=== PATIENT | female | born 1980 | race Caucasian/White ===

== ENCOUNTER → 2017-01-14 | Outpatient (CLI) | payer BC ==
[~2017-01-14] MED LIST: ACET-1256 PO; MTR600X PO; ONDA4TAB4 PO; OXYC-57 PO; PRENTAB26 PO
[2017-01-14 17:14] LABS: HEMATOCRIT 35.4 % (37-47)
[2017-01-14 18:27] LABS: URINE APPEARANCE CLEAR (CLEAR); URINE COLOR DK YELLOW; URINE EPITHELIAL CELL AUTO >30 /lpf (0-5); URINE NITRITE NEG (NEG); URINE PH 6.5 (4.5-7.5); URINE SPECIFIC GRAVITY 1.029 (1.000-1.030); UROBILINOGEN NEG (NEG)
[2017-01-14 18:31] LABS: MANUAL MICROSCOPIC REQUIRED? NO; REVIEW REQ? YES; URINE BILIRUBIN NEG (NEG)
== END | disposition home or self-care (01) ==
LOC: C.LAB1850 15:18
PROVIDERS: ATTEND Obstetrics & Gynecology
DX: O09.513 Supervision of elderly primigravida, third trimester (principal)

== ENCOUNTER → 2017-03-02 | Outpatient (CLI) | payer BC ==
[2017-03-02 09:54] LABS: PATIENT HEIGHT 175.3 cm
[2017-03-02 22:39] LABS: URINE TOTAL PROTEIN 15.7 mg/dl (0-11.9)
[2017-03-02 22:43] LABS: CREATININE 0.65 mg/dl (0.6-1.2); URINE TOTAL PROTEIN CALC 423.9 mg/24 hr (0-149.1)
== END ==
LOC: C.LAB1850 09:44
PROVIDERS: ATTEND Obstetrics & Gynecology
DX: O10.912 Unspecified pre-existing hypertension complicating pregnancy, second trimester (principal)

== ENCOUNTER → 2017-03-05 | Outpatient (CLI) | payer BC ==
[2017-03-05 15:00] LABS: MEAN CELL VOLUME 94.1 fL (80-100); MEAN CORPUSCULAR HEMOGLOBIN 30.8 pg (25-34); PLATELET COUNT 319 K/uL (130-400); RED BLOOD COUNT 3.93 M/uL (4.2-5.4); WHITE BLOOD COUNT 13.69 K/uL (4.8-10.8)
[2017-03-05 15:24] LABS: BASO % 0.1 %; BASO ABS # 0.02 K/uL (0-0.2); COMPLETE YES; EOS % 1.2 %; IG% 0.4 %; LYMPH % 19.6 %; LYMPH ABS # 2.68 K/uL (1.2-3.4); MEAN CORPUSCULAR HGB CONC 32.7 g/dl (32-36); MONO % 5.8 %; NEUT % 72.9 %
[2017-03-05 15:25] LABS: ALT/SGPT 33 U/L (12-78); AST/SGOT 17 U/L (15-37); CREATININE 0.63 mg/dl (0.60-1.20); URIC ACID 3.9 mg/dl (2.6-7.2)
== END | disposition home or self-care (01) ==
LOC: C.LAB1850 14:28
PROVIDERS: ATTEND Obstetrics & Gynecology
DX: O11.9 Pre-existing hypertension with pre-eclampsia, unspecified trimester (principal)

== ENCOUNTER → 2017-03-12 | Outpatient (CLI) | payer BC ==
[2017-03-12 15:26] LABS: BASO % 0.1 %; BASO ABS # 0.01 K/uL (0-0.2); EOS % 1.3 %; HEMATOCRIT 37.3 % (37-47); IG% 0.7 %; MEAN CELL VOLUME 94.4 fL (80-100); MEAN CORPUSCULAR HEMOGLOBIN 31.1 pg (25-34); MEAN PLATELET VOLUME 10.2 fL (7.4-10.4); MONO % 5.9 %; PLATELET COUNT 313 K/uL (130-400); RED BLOOD COUNT 3.95 M/uL (4.2-5.4)
[2017-03-12 15:29] LABS: COMPLETE YES
[2017-03-12 15:55] LABS: ALT/SGPT 27 U/L (12-78); AST/SGOT 14 U/L (15-37); CREATININE 0.65 mg/dl (0.60-1.20); URIC ACID 3.9 mg/dl (2.6-7.2)
== END | disposition home or self-care (01) ==
LOC: C.LAB1850 14:49
PROVIDERS: ATTEND Obstetrics & Gynecology
DX: O11.9 Pre-existing hypertension with pre-eclampsia, unspecified trimester (principal)

== ENCOUNTER → 2017-03-12 | Outpatient (CLI) | payer BC | END | disposition home or self-care (01) | LOC: C.LABSPEC 10:42 | PROVIDERS: ATTEND Obstetrics & Gynecology | DX: O09.513 Supervision of elderly primigravida, third trimester (principal); Z3A.00 Weeks of gestation of pregnancy not specified ==

== ENCOUNTER 2017-03-23 19:09 | Outpatient (CLI) | payer BC ==
[~2017-03-23] VITALS: Ht 175.3 cm; Wt 117.0 kg
[~2017-03-23 19:09] MED LIST changes: -MTR600X PO; -OXYC-57 PO; -PRENTAB26 PO
[2017-03-23 20:33] VITALS: Ht 175.3 cm; Wt 117.0 kg
[2017-03-24] MEDS ORDERED: PRENTAB26 PO (09:03)
== END 2017-03-23 20:55 | disposition home or self-care (01) ==
LOC: C.OPB 19:09 → C.LD 19:09 → C.OPB 20:55
PROVIDERS: ATTEND Obstetrics & Gynecology
DX: O24.414 Gestational diabetes mellitus in pregnancy, insulin controlled (principal); O11.3 Pre-existing hypertension with pre-eclampsia, third trimester; O09.93 Supervision of high risk pregnancy, unspecified, third trimester; Z3A.37 37 weeks gestation of pregnancy

== ENCOUNTER 2017-03-24 07:40 | Inpatient (IN) | payer BC ==
[~2017-03-24] VITALS: Ht 175.3 cm; Wt 115.9 kg
[2017-03-24] MEDS ORDERED: LACTATED RINGER'S 1000ML 1,000 ML IV PRN (08:51)
[2017-03-24] MEDS ORDERED: PRENTAB26 PO (09:03)
[2017-03-24] MEDS ORDERED: DEXTROSE 50% 50 ML SYR IV PRN (09:15)
[2017-03-24 09:35] LABS: HEMATOCRIT 35.9 % (37-47); MEAN CELL VOLUME 95.2 fL (80-100); MEAN CORPUSCULAR HEMOGLOBIN 31.8 pg (25-34); MEAN CORPUSCULAR HGB CONC 33.4 g/dl (32-36); MEAN PLATELET VOLUME 10.4 fL (7.4-10.4); PLATELET COUNT 268 K/uL (130-400); RED BLOOD COUNT 3.77 M/uL (4.2-5.4); WHITE BLOOD COUNT 10.34 K/uL (4.8-10.8)
[2017-03-24] MEDS ORDERED: LACTATED RINGER'S 1000ML 500 ML IV PRN ×2 (10:06→19:45)
[2017-03-24] MEDS ORDERED: OXYTOCIN 30 UNITS/500ML NSS IV PRN (10:15)
[2017-03-24 10:21] LABS: ALT/SGPT 27 U/L (12-78); AST/SGOT 16 U/L (15-37); BLOOD UREA NITROGEN 10 mg/dl (7-18); BUN/CREATININE RATIO 14.4 (10-20); CALCIUM 8.3 mg/dl (8.5-10.1); CARBON DIOXIDE 22 mmol/L (21-32); CHLORIDE 105 mmol/L (98-107); CREATININE 0.67 mg/dl (0.60-1.20); GLUCOSE 208 mg/dl (70-99); POTASSIUM 3.9 mmol/L (3.5-5.1); SODIUM 135 mmol/L (136-145); URIC ACID 4.6 mg/dl (2.6-7.2)
[2017-03-24 10:24] LABS: ALB/GLOB RATIO 0.6 (0.9-2); ALKALINE PHOSPHATASE 150 U/L (45-117)
[2017-03-24] MEDS: LACTATED RINGER'S 1000ML 1,000 ML IV SCH ×3 (10:25→21:29)
[2017-03-24] MEDS: INSULIN REGULAR 250 UNITS in SODIUM CHLORIDE 0.9% 250ML 250 ML IV SCH ×7 (10:45→18:57)
[2017-03-24] MEDS: SODIUM CHLORIDE 0.9% 1000ML 1,000 ML IV SCH ×2 (10:46→18:53)
[2017-03-24 11:13] VITALS: Ht 175.3 cm; Wt 115.9 kg
[2017-03-24] MEDS ORDERED: LABETALOL HCL IV 5 MG/ML 20ML IV PRN ×2 (12:15→20:30)
[2017-03-24] MEDS: DEXTROSE 5% 1000ML 1,000 ML IV SCH ×3 (12:59→18:53)
[2017-03-24] MEDS ORDERED: EpHEDrine SULFATE INJ 50 MG/ML AMP ONE (18:34)
[2017-03-24] MEDS ORDERED: BUPIVACAINE 0.25% 30 ML VIAL ONE (18:34)
[2017-03-24] MEDS ORDERED: FENTANYL CITRATE INJ 50 MCG/1 ML 2 ML VIAL ONE (18:35)
[2017-03-24] MEDS ORDERED: FENTANYL 2MCG/ML ROPIV 1.25MG/ML 100ML BAG EPI ONE (18:35)
[2017-03-24] MEDS ORDERED: DiphenhydrAMINE HCL 50 MG/ML VIAL IV PRN (19:45)
[2017-03-24] MEDS ORDERED: NALBUPHINE HCL INJ 10 MG/ML AMP IV PRN (19:45)
[2017-03-24] MEDS ORDERED: EpHEDrine SULFATE INJ 50 MG/ML AMP IV PRN (19:45)
[2017-03-24] MEDS ORDERED: NALOXONE HCL INJ 1 MG in SODIUM CHLORIDE 0.9% 1000ML 1,000 ML IV PRN (19:45)
[2017-03-24] MEDS ORDERED: NALOXONE HCL INJ 0.4 MG/1 ML VIAL/CARP IV PRN (19:45)
[2017-03-24] MEDS: FENTANYL 2MCG/ML ROPIV 1.25MG/ML 100ML BAG EPI PRN (21:33)
[2017-03-25] VITALS (15 sets, daily range): BP systolic 122–146; BP diastolic 70–92; PULSE 60–74; TEMP 36.3–36.9; O2SAT 94–99
[2017-03-25] MEDS ORDERED: NURSING VERBAL MED ORDER ONE ×2 (00:30→05:00)
[2017-03-25] MEDS ORDERED: ONDANSETRON INJ 2 MG/ML 2 ML VIAL ONE ×2 (00:44→07:02)
[2017-03-25] MEDS ORDERED: ONDANSETRON INJ 2 MG/ML 2 ML VIAL IV ONE (00:45)
[2017-03-25] MEDS ORDERED: ONDANSETRON INJ 2 MG/ML 2 ML VIAL IV PRN ×2 (00:45→09:00)
[2017-03-25] MEDS: FENTANYL 2MCG/ML ROPIV 1.25MG/ML 100ML BAG EPI PRN ×2 (00:52→07:05)
[2017-03-25] MEDS: DEXTROSE 5% 1000ML 1,000 ML IV SCH (00:56)
[2017-03-25] MEDS: INSULIN REGULAR 250 UNITS in SODIUM CHLORIDE 0.9% 250ML 250 ML IV SCH ×2 (04:20→06:14)
[2017-03-25] MEDS ORDERED: CITRIC ACID/SODIUM CITRATE 15 ML UDC PO ONE (05:45)
[2017-03-25] MEDS ORDERED: CEFAZOLIN IV 3,000 MG in DEXTROSE 5% 50ML 50 ML IV SCH (06:00)
[2017-03-25] MEDS ORDERED: FENTANYL CITRATE INJ 50 MCG/1 ML 2 ML VIAL ONE (07:02)
[2017-03-25] MEDS ORDERED: MoRPHine SULFATE PF 1 MG/ML 10 ML AMP/VIAL ONE (07:02)
[2017-03-25] MEDS ORDERED: PHENYLEPHRINE HCL INJ 10 MG/ML VIAL ONE (07:02)
[2017-03-25] MEDS ORDERED: EpHEDrine SULFATE INJ 50 MG/ML AMP ONE (07:02)
[2017-03-25] MEDS ORDERED: OXYTOCIN INJ 10 UNITS/ML VIAL ONE (07:02)
[2017-03-25] MEDS ORDERED: LIDOCAINE/EPINEPHRINE 2% 1:200,000 20 ML SDV ONE (07:02)
[2017-03-25] MEDS ORDERED: LACTATED RINGER'S 1000ML 1,000 ML IV SCH (08:36)
--- NOTE | 2017-03-25 08:38 | [facility] Post Operative Brief Note ---
Immediate Operative Summary Operative Date March 25, 2017. Pre-Operative Diagnosis Failure to Descend; Chronic Hypertension;Superimposed Preeclampsia;Gestational Diabetic A2;Advanced Maternal Age Post-Operative Diagnosis Same Procedure(s) Performed Primary Caesarean Section; Delivery of a live female child at [address] Cavanaugh Complaint Investigations Officer Surgeon(s) Viviana oRsenbaum, RN;Dr. Duoglas Estimated Blood Loss 600 cc Findings Normal uterus tubes and ovaries. Viable female , Apgars 9/9. Wt 7#3. Specimens cord blood placenta- exam arterial and venous gases Drains vences, clear yellow at conclusion of case Anesthesia epidural redose Complication(s) None Disposition Recovery Room / PACU
[2017-03-25] MEDS ORDERED: BENZOCAINE 20% AER SPR 82.5 GM CAN EXT PRN (08:45)
[2017-03-25] MEDS ORDERED: DIPHTHERIA/TETANUS/PERTUSSIS 0.5 ML SYR/VIAL IM. ONE (08:45)
[2017-03-25] MEDS ORDERED: HYDROCORTISONE ACETATE 25 MG SUPP PR PRN (08:45)
[2017-03-25] MEDS ORDERED: SUPERCREAM 0.870 % 15GM JAR EXT PRN (08:45)
[2017-03-25] MEDS ORDERED: LANOLIN OINT EXT PRN ×2 (08:45)
[2017-03-25] MEDS ORDERED: NALOXONE HCL INJ 0.08 MG in SYRINGE 1.8 ML IV PRN (08:49)
[2017-03-25] MEDS ORDERED: SODIUM CHLORIDE 0.9% 1000ML 1,000 ML IV PRN (08:49)
[2017-03-25] MEDS ORDERED: LACTATED RINGER'S 1000ML 500 ML IV PRN (08:49)
--- NOTE | 2017-03-25 08:52 | Anesthesiology Progress Note ---
Anesthesia Post Op Note Date & Time March 25, 2017 at 08:51 Vital Signs Pain Intensity: 1.0 Notes Mental Status: alert / awake / arousable, participated in evaluation Pt Amnestic to Procedure: No (recall as expected) Nausea / Vomiting: adequately controlled Pain: adequately controlled Airway Patency, RR, SpO2: stable & adequate BP & HR: stable & adequate Hydration State: stable & adequate Neuraxial Anesthesia: sensory block is resolving Anesthetic Complications: no major complications apparent Pt had C/S for arrest of descent. She had a pre-existing epidural catheter which I used for the procedure. Her anesthetic course was unremarkable. Post-op vitals: BP 118/57, HR 82, RR 16, SpO2 95% on RA, T 36.5.
[2017-03-25] MEDS ORDERED: DiphenhydrAMINE HCL 50 MG/ML VIAL IV PRN (09:00)
[2017-03-25] MEDS ORDERED: NALOXONE HCL 0.4 MG/1 ML VIAL/CARP IV PRN (09:00)
[2017-03-25] MEDS ORDERED: PROMETHAZINE HCL INJ 25 MG in SODIUM CHLORIDE 0.9% 50ML 50 ML IV PRN (09:00)
[2017-03-25] MEDS ORDERED: MoRPHine SULFATE 2 MG/ML CARP IV PRN (09:00)
[2017-03-25] MEDS ORDERED: MEPERIDINE HCL 25 MG/ML CARP IV PRN (09:00)
[2017-03-25] MEDS ORDERED: NALBUPHINE HCL INJ 10 MG/ML AMP IV PRN (09:00)
[2017-03-25] MEDS ORDERED: MoRPHine SULFATE PF 1 MG/ML 10 ML AMP/VIAL EPI PRN (09:00)
[2017-03-25] MEDS ORDERED: NO NARCOTICS OR SEDATIVES SCH (09:00)
[2017-03-25] MEDS ORDERED: EpHEDrine SULFATE INJ 50 MG/ML AMP IV PRN (09:00)
[2017-03-25] MEDS: OXYTOCIN INJ 30 UNITS in LACTATED RINGER'S 1000ML 1,000 ML IV SCH ×2 (09:10→17:26)
[2017-03-25] MEDS: KETOROLAC TROMETHAMINE 30 MG/ML VIAL IV. PRN ×2 (09:49→23:34)
--- NOTE | 2017-03-25 10:05 | OPERATIVE REPORT ---
DATE OF OPERATION: 03/25/2017 PREOPERATIVE DIAGNOSES: 1. Term intrauterine at 37-week gestation, induction indicated for chronic hypertension with superimposed preeclampsia. 2. Failure to descend beyond +1 station after 3 hours of pushing. 3. Gestational diabetes type A2, uncontrolled. 4. Advanced maternal age. 5. Smoker. POSTOPERATIVE DIAGNOSES: Same. PROCEDURES PERFORMED: Primary low transverse section with delivery of a live female . SURGEON: Maday Cavanaugh DO ASSISTANTS: Ana Douglas MD and Marcy Rosenbaum RN. ESTIMATED BLOOD LOSS: 600 mL. FINDINGS: Normal uterus, tubes, and ovaries. Viable female , Apgars 9 and 9, weight 7 pounds 3 ounces. SPECIMENS: Cord blood, placenta and cord gases. DRAINS: Seaman, clear yellow at the conclusion of the case. ANESTHESIA: Epidural redosed. COMPLICATIONS: None. DISPOSITION: Stable and good to recovery room and PACU. INDICATIONS FOR PROCEDURE: The patient was undergoing indicated induction of labor for the above noted diagnoses and she progressed to complete with epidural anesthesia. She then began to push and pushed for 3+ hours with no progression and station. heart tracing was category 1 throughout. DESCRIPTION OF PROCEDURE: The patient was seen in her room and risks, benefits, alternatives were reviewed surgery. She elected to proceed with section and informed consent was obtained. All questions were answered to the patient and her mother. She was then taken to the operating room where 3 grams of Ancef was infused. She was prepared and draped in the usual sterile fashion in the supine position with a leftward tilt. A timeout was called and confirmed and agreed by all participants in the room. A scalpel was used to create the Pfannenstiel skin incision. This was carried through to the underlying layer of fascia. The fascia was nicked at midline and bluntly dissected to extend this incision. The superior aspect of the fascial incision was grasped with Meg clamps x2 and elevated off the underlying rectus abdominis muscles. The inferior aspect of the incision was similarly grasped and dissected. The muscles were at midline and the peritoneum was entered bluntly digitally. A bladder flap was created using Metzenbaum scissors and bladder blade was placed. A new scalpel was used to create the low transverse uterine incision. This was extended by cephalad caudad manually. The was then delivered from a cephalic presentation. The head delivered, followed by the posterior, followed by the anterior shoulder, followed by the body. The baby was warmed and suctioned on the field and a spontaneous cry was heard. The cord was doubly clamped and cut and the baby was handed off to the waiting pediatrics team. The cord segment was obtained and cord blood was obtained. The placenta was then manually extracted from the uterus and multiple bits of membranes were gently teased from the uterine lining with both a dry sponge and ring forceps. A final sweep of the uterus revealed no obvious remaining membranes. The hysterotomy incision was then reapproximated using 0 Vicryl in a running locked stitch, a second stitch of the same suture was used to imbricate the incision. The gutters were cleared of all clots and debris. The hysterotomy incision was noted to be hemostatic. The fascia was reapproximated with 0 Vicryl in a running stitch. The subcutaneous area was irrigated and reapproximated with 2-0 plain gut in a running stitch. The skin was reapproximated with 4-0 Vicryl in a running subcuticular stitch. Dermabond was applied and the patient was taken to recovery room in stable and good condition. I attest to the content of the Intraoperative Record and any orders documented therein. Any exceptio ns are noted below.
[2017-03-25] MEDS: SIMETHICONE 80 MG CHEW PO SCH ×3 (12:30→21:00)
[2017-03-25] MEDS: DOCUSATE SODIUM 100 MG CAP PO SCH (21:00)
[2017-03-26] VITALS (9 sets, daily range): BP systolic 116–154; BP diastolic 68–87; PULSE 65–75; TEMP 36.5–37; O2SAT 95–97
[2017-03-26] MEDS: OXYTOCIN INJ 30 UNITS in LACTATED RINGER'S 1000ML 1,000 ML IV SCH (02:16)
[2017-03-26] MEDS ORDERED: DC INTRASPINAL MORPHINE SCH (03:00)
[2017-03-26] MEDS ORDERED: MEPERIDINE HCL 50 MG/ML CARP IV PRN ×2 (03:00→03:01)
[2017-03-26] MEDS ORDERED: ONDANSETRON INJ 2 MG/ML 2 ML VIAL IV PRN (03:01)
[2017-03-26] MEDS ORDERED: DiphenhydrAMINE HCL 50 MG/ML VIAL IV PRN (03:01)
[2017-03-26] MEDS ORDERED: PROMETHAZINE HCL INJ 25 MG in SODIUM CHLORIDE 0.9% 50ML 50 ML IV PRN (03:01)
[2017-03-26] MEDS ORDERED: ZOLPIDEM TARTRATE 5 MG TAB PO PRN (03:01)
[2017-03-26] MEDS ORDERED: KETOROLAC TROMETHAMINE 30 MG/ML VIAL IV. PRN (03:01)
[2017-03-26 06:27] LABS: BASO % 0.1 %; BASO ABS # 0.01 K/uL (0-0.2); COMPLETE YES; EOS % 0.8 %; HEMATOCRIT 35.6 % (37-47); IG% 0.2 %; LYMPH ABS # 2.36 K/uL (1.2-3.4); MEAN CELL VOLUME 94.2 fL (80-100); MEAN CORPUSCULAR HEMOGLOBIN 30.4 pg (25-34); MEAN CORPUSCULAR HGB CONC 32.3 g/dl (32-36); MEAN PLATELET VOLUME 9.8 fL (7.4-10.4); MONO % 4.9 %; PLATELET COUNT 233 K/uL (130-400); RED BLOOD COUNT 3.78 M/uL (4.2-5.4); WHITE BLOOD COUNT 18.11 K/uL (4.8-10.8)
--- NOTE | 2017-03-26 06:38 | Progress Note ---
Subjective March 26, 2017. Subjective conversation w/ patient, physical exam, lab review Ambulation: limited ambulation Passing Gas: Yes Diet Tolerance: Regular Diet Lochia: Moderate Feeding Type: Breast Feeding Pain: improves with med Comment: Patient was seen at the bedside. No acute event overnight. Review of Systems Constitutional: No fever Respiratory: No shortness of breath Cardiac: No chest pain Breast: No breast lump Abdomen: No nausea, No pain, No vomiting Denies headache Objective Vital Signs Date Time Temp Pulse Resp B/P Pulse Ox O2 Delivery O2 Flow Rate FiO2 03/26/17 04:00 16 95 03/26/17 04:00 36.7 65 16 116/68 95 Room Air 03/26/17 03:00 16 96 03/26/17 02:00 18 97 03/26/17 01:00 18 95 03/26/17 00:00 18 97 03/26/17 00:00 36.9 70 18 136/84 97 Room Air 03/26/17 00:00 Room Air 03/25/17 23:00 18 95 03/25/17 22:00 18 96 03/25/17 21:00 18 96 03/25/17 21:00 36.9 74 18 137/80 96 Room Air 03/25/17 20:00 18 97 03/25/17 19:00 18 96 03/25/17 18:33 16 96 03/25/17 17:30 16 95 03/25/17 16:27 16 99 03/25/17 15:15 98 Room Air 2.0 03/25/17 15:15 36.4 60 16 145/92 Room Air 03/25/17 15:15 16 98 03/25/17 14:30 16 94 03/25/17 13:30 16 95 03/25/17 13:20 36.3 60 20 144/89 94 Room Air 03/25/17 12:30 16 96 03/25/17 12:20 36.3 73 18 122/70 95 Room Air 03/25/17 11:30 36.8 70 20 146/78 Room Air 03/25/17 11:30 96 Room Air 03/25/17 11:30 36.8 70 18 146/78 98 Room Air 03/25/17 11:30 16 95 Physical Exam General Appearance: WELL-APPEARING, WD/WN, NO APPARENT DISTRESS Respiratory/Chest: chest non-tender, lungs clear, normal breath sounds Cardiovascular: regular rate, rhythm Abdomen: normal bowel sounds, non tender, soft Fundus: Firm, Tender, Relation to Umbilicus (1cm below the U) Incision Description: Clean, Dry & Intact Extremities: non-tender, no calf tenderness, + pedal edema (trace b/l lower ext ) Laboratory Results Last 24 Hours Test 03/26/17 06:16 White Blood Count 18.11 K/uL Red Blood Count 3.78 M/uL Hemoglobin 11.5 g/dL Hematocrit 35.6 % Mean Corpuscular Volume 94.2 fL Mean Corpuscular Hemoglobin 30.4 pg Mean Corpuscular Hemoglobin Concent 32.3 g/dl Platelet Count 233 K/uL Mean Platelet Volume 9.8 fL Neutrophils (%) (Auto) 81.0 % Lymphocytes (%) (Auto) 13.0 % Monocytes (%) (Auto) 4.9 % Eosinophils (%) (Auto) 0.8 % Basophils (%) (Auto) 0.1 % Neutrophils # (Auto) 14.67 K/uL Lymphocytes # (Auto) 2.36 K/uL Monocytes # (Auto) 0.89 K/uL Eosinophils # (Auto) 0.14 K/uL Basophils # (Auto) 0.01 K/uL RDW Standard Deviation 50.2 fL RDW Coefficient of Variation 14.6 % Immature Granulocyte % (Auto) 0.2 % Immature Granulocyte # (Auto) 0.04 K/uL Medications Current Inpatient Medications Medications (Trade) Dose Ordered Sig/Leanna Route Start Time Stop Time Status Last Admin Dose Admin Oxytocin 30 units/ Lactated Ringer's 1,003 ml @ 125 mls/hr Q8H2M IV 03/25/17 08:36 04/24/17 08:35 03/26/17 02:16 125 MLS/HR Lactated Ringer's (Lr 1000ml) 1,000 ml @ 125 mls/hr Q8H IV 03/25/17 08:36 04/24/17 08:35 Ketorolac Tromethamine (Toradol Inj) 30 mg Q6H PRN IV. 03/26/17 03:01 03/30/17 08:44 03/26/17 06:09 30 MG Meperidine HCl (Demerol Inj) 50 mg Q4H PRN IV 03/26/17 03:00 04/09/17 02:59 Meperidine HCl (Demerol Inj) 75 mg Q4H PRN IV 03/26/17 03:01 04/09/17 03:00 Oxycodone/ Acetaminophen (Percocet 5-325mg Tab) 1 tab Q4H PRN PO 03/26/17 03:01 04/09/17 03:00 Oxycodone/ Acetaminophen (Percocet 5-325mg Tab) 2 tab Q4H PRN PO 03/26/17 03:01 04/09/17 03:00 Ibuprofen 600 mg 600 mg Q4H PRN PO 03/25/17 08:45 04/24/17 08:44 Promethazine HCl/ Sodium Chloride (Phenergan Inj/ Nss 50ml) 51 ml @ 204 mls/hr Q4H PRN IV 03/26/17 03:01 04/25/17 03:00 Ondansetron HCl (Zofran Inj) 4 mg Q4H PRN IV 03/26/17 03:01 04/25/17 03:00 Prenat Multivit/ Misenheimer/Iron/Folic Ac ( Vitamin Tab) 1 tab DAILY PO 03/26/17 08:00 04/25/17 07:59 Docusate Sodium (coLACE CAP) 100 mg BID PO 03/25/17 20:00 04/24/17 19:59 03/25/17 21:00 100 MG Cocaine HCl (Supercream 0.870% Cr) BID PRN EXT 03/25/17 08:45 04/08/17 08:44 Lanolin (Lanolin Oint) PRN PRN EXT 03/25/17 08:45 04/24/17 08:44 Hydrocortisone Acetate (Anusol Hc Supp) 25 mg BID PRN DE 03/25/17 08:45 04/24/17 08:44 Benzocaine (Dermoplast Aero Spr) 1 appln PRN PRN EXT 03/25/17 08:45 04/24/17 08:44 Zolpidem Tartrate (Ambien Tab) 5 mg HSZ PRN PO 03/26/17 03:01 04/25/17 03:00 Simethicone (Mylicon Chew Tab) 80 mg QID PO 03/25/17 09:00 04/24/17 08:59 03/25/17 21:00 80 MG Diphenhydramine HCl (Benadryl Cap) 25 mg QID PRN PO 03/26/17 03:01 04/25/17 03:00 Diphenhydramine HCl (Benadryl Inj) 25 mg QID PRN IV 03/26/17 03:01 04/25/17 03:00 Assessment and Plan Post-Op Day#: 1 Continue Routine Care: A/P: This is a 36 y/o female, , s/p . Limited ambulation, vences was removed this morning. Plan: - Vitals signs are reviewed and WNL (Tmax 36.9 ) - Last Hgb is 11.5 - Blood type O+, GBS neg, Rubella Immune - Routine care - Encourage ambulation, monitor and control pain with medication as needed , continue with regular diet as tolerated and monitor lochia - Stool softeners and sitz bath recommended - Encourage breast feeding and educate about breast feeding Resident Physician Supervision Note: I interviewed and examined the patient. Discussed with Dr. Garcia and agree with findings and plan as documented in the note. Any exceptions or clarifications are listed here: [None] Documented By: Ana Douglas
[2017-03-26] MEDS: DOCUSATE SODIUM 100 MG CAP PO SCH ×2 (08:12→19:48)
[2017-03-26] MEDS: SIMETHICONE 80 MG CHEW PO SCH ×4 (08:12→19:48)
[2017-03-26] MEDS: PRENATAL VITAMIN TAB PO SCH (08:12)
[2017-03-26] MEDS: OXYCODONE/ACETAMINOPHEN 5-325 TAB PO PRN ×3 (12:48→23:11)
[2017-03-26] MEDS: IBUPROFEN 600 MG TAB PO PRN ×3 (12:49→23:10)
--- NOTE | 2017-03-27 06:54 | Progress Note ---
Subjective March 27, 2017. Subjective conversation w/ patient, physical exam, lab review Ambulation: ambulating normally Voiding: no voiding problems Passing Gas: Yes Diet Tolerance: Regular Diet Lochia: Small Feeding Type: Breast Feeding Pain: improves with med Comment: Patient was seen at the bedside. No acute event overnight. Review of Systems Constitutional: No fever Respiratory: No cough, No shortness of breath Cardiac: No chest pain Breast: No breast lump Abdomen: No nausea, No pain, No vomiting Female : No dysuria Denies headache Objective Vital Signs Date Time Temp Pulse Resp B/P Pulse Ox O2 Delivery O2 Flow Rate FiO2 03/26/17 23:15 36.8 65 20 148/85 Room Air 03/26/17 23:15 Room Air 03/26/17 19:45 154/86 03/26/17 15:35 96 Room Air 03/26/17 15:35 37.0 75 18 152/81 96 Room Air 03/26/17 07:30 36.5 71 20 134/87 Room Air 03/26/17 07:30 Room Air Physical Exam General Appearance: WELL-APPEARING, WD/WN, NO APPARENT DISTRESS Respiratory/Chest: chest non-tender, lungs clear, normal breath sounds, no respiratory distress Cardiovascular: regular rate, rhythm Abdomen: normal bowel sounds, non tender, soft Fundus: Firm, Relation to Umbilicus (1-2cm below U) Incision Description: Clean, Dry & Intact Extremities: non-tender, no calf tenderness, + pedal edema (1+ edema b/l LE) Medications Current Inpatient Medications Medications (Trade) Dose Ordered Sig/Leanna Route Start Time Stop Time Status Last Admin Dose Admin Ketorolac Tromethamine (Toradol Inj) 30 mg Q6H PRN IV. 03/26/17 03:01 03/30/17 08:44 03/26/17 06:09 30 MG Meperidine HCl (Demerol Inj) 50 mg Q4H PRN IV 03/26/17 03:00 04/09/17 02:59 Meperidine HCl (Demerol Inj) 75 mg Q4H PRN IV 03/26/17 03:01 04/09/17 03:00 Oxycodone/ Acetaminophen (Percocet 5-325mg Tab) 1 tab Q4H PRN PO 03/26/17 03:01 04/09/17 03:00 03/26/17 12:48 1 TAB Oxycodone/ Acetaminophen (Percocet 5-325mg Tab) 2 tab Q4H PRN PO 03/26/17 03:01 04/09/17 03:00 03/26/17 23:11 2 TAB Ibuprofen 600 mg 600 mg Q4H PRN PO 03/25/17 08:45 04/24/17 08:44 03/26/17 23:10 600 MG Promethazine HCl/ Sodium Chloride (Phenergan Inj/ Nss 50ml) 51 ml @ 204 mls/hr Q4H PRN IV 03/26/17 03:01 04/25/17 03:00 Ondansetron HCl (Zofran Inj) 4 mg Q4H PRN IV 03/26/17 03:01 04/25/17 03:00 Prenat Multivit/ Ignition Mechanic/Iron/Folic Ac ( Vitamin Tab) 1 tab DAILY PO 03/26/17 08:00 04/25/17 07:59 03/26/17 08:12 1 TAB Docusate Sodium (coLACE CAP) 100 mg BID PO 03/25/17 20:00 04/24/17 19:59 03/26/17 19:48 100 MG Cocaine HCl (Supercream 0.870% Cr) BID PRN EXT 03/25/17 08:45 04/08/17 08:44 Lanolin (Lanolin Oint) PRN PRN EXT 03/25/17 08:45 04/24/17 08:44 Hydrocortisone Acetate (Anusol Hc Supp) 25 mg BID PRN ID 03/25/17 08:45 04/24/17 08:44 Benzocaine (Dermoplast Aero Spr) 1 appln PRN PRN EXT 03/25/17 08:45 04/24/17 08:44 Zolpidem Tartrate (Ambien Tab) 5 mg HSZ PRN PO 03/26/17 03:01 04/25/17 03:00 Simethicone (Mylicon Chew Tab) 80 mg QID PO 03/25/17 09:00 04/24/17 08:59 03/26/17 19:48 80 MG Diphenhydramine HCl (Benadryl Cap) 25 mg QID PRN PO 03/26/17 03:01 04/25/17 03:00 Diphenhydramine HCl (Benadryl Inj) 25 mg QID PRN IV 03/26/17 03:01 04/25/17 03:00 Assessment and Plan Post-Op Day#: 2 Continue Routine Care: A/P: This is a 36 y/o female, , s/p normal vaginal delivery . She is ambulating and clinically stable. Her BP is elevated this morning (148/85). Plan: - Continue to monitor the BP, Tmax 37 - Last Hgb is 11.5 - Blood type O+, GBS neg, Rubella Immune - Routine care - Encourage ambulation, monitor and control pain with medication as needed , continue with regular diet as tolerated and monitor lochia - Stool softeners and sitz bath recommended - Encourage breast feeding and educate about breast feeding Resident Physician Supervision Note: I interviewed and examined the patient. Discussed with Dr. Garcia and agree with findings and plan as documented in the note. Any exceptions or clarifications are listed here: [None] Documented By: Avtar Singer
[2017-03-27] MEDS: DOCUSATE SODIUM 100 MG CAP PO SCH ×2 (07:34→19:49)
[2017-03-27] MEDS: IBUPROFEN 600 MG TAB PO PRN ×4 (07:34→20:07)
[2017-03-27] MEDS: PRENATAL VITAMIN TAB PO SCH (07:34)
[2017-03-27] MEDS: SIMETHICONE 80 MG CHEW PO SCH ×4 (07:34→19:49)
[2017-03-27] MEDS: OXYCODONE/ACETAMINOPHEN 5-325 TAB PO PRN ×4 (07:34→20:08)
[2017-03-27 08:00] VITALS: BP 147/89; PULSE 62; TEMP 36.5; O2SAT 97
[2017-03-27 13:00] VITALS: BP 157/91
[2017-03-27 14:01] VITALS: BP 157/91
[2017-03-27 15:40] VITALS: BP 155/94; PULSE 63; TEMP 36.7; O2SAT 98
[2017-03-28 00:30] VITALS: PULSE 69; TEMP 36.9
[2017-03-28] MEDS: OXYCODONE/ACETAMINOPHEN 5-325 TAB PO PRN ×3 (02:03→08:57)
[2017-03-28] MEDS: IBUPROFEN 600 MG TAB PO PRN ×2 (02:04→08:58)
--- NOTE | 2017-03-28 07:39 | Progress Note ---
Subjective March 28, 2017. Subjective conversation w/ patient, physical exam Ambulation: ambulating normally Voiding: no voiding problems Passing Gas: Yes Diet Tolerance: Regular Diet Lochia: Small Feeding Type: Bottle Feeding Pain: still some pain in area above incision with deep pushing, feels "numb" Comment: pt is trying to breast feed too and pumping. Objective Vital Signs Date Time Temp Pulse Resp B/P Pulse Ox O2 Delivery O2 Flow Rate FiO2 03/28/17 00:30 36.9 69 18 Room Air 03/28/17 00:30 Room Air 03/27/17 15:40 98 Room Air 03/27/17 15:40 36.7 63 18 155/94 98 Room Air 03/27/17 13:00 157/91 03/27/17 08:00 36.5 62 17 147/89 97 Room Air Physical Exam General Appearance: WELL-APPEARING, NO APPARENT DISTRESS Respiratory/Chest: lungs clear Cardiovascular: regular rate, rhythm Abdomen: normal bowel sounds, non tender, soft Fundus: Firm, Relation to Umbilicus (2 down) Incision Description: Clean, Dry & Intact, Erythema (above incision in triangular distribution, some redness and induration right above incision, does not emanate from incision. ) Extremities: non-tender, + pedal edema, + swelling (+2) Assessment and Plan Post-Op Day#: 3 Continue Routine Care: stable, I did see her abdomen yesterday when nurse asked me to look at it yesterday afternoon, incision looks good, area of redness above is same today and I feel no overt infection, likely subcut edema. reviewed with pt again, can try warm compresses to see if anything drains. plan 2wk incision check with Mao. nothing to treat as of now, need to see if changes with time. ready for d/c home. discussed instructions and followup.
[2017-03-28] MEDS ORDERED: OXYC-57 PO (07:41)
[2017-03-28] MEDS ORDERED: MTR600X PO (07:41)
--- NOTE | 2017-03-28 07:44 | Discharge Instructions ---
Discharge Instructions Date of Service March 27, 2017. Admission Reason for Admission: Induction Discharge Discharge Diagnosis / Problem: s/p Discharge Goals Goal(s): Routine recovery after Medications Continue Dispensed Medications: supercream, dermaplast, tucks, lansinoh Activity Recommendations Activity Limitations: as noted below . Instructions / Follow-Up Instructions / Follow-Up ACTIVITY RECOMMENDATIONS: * Gradual return to full activity over the next 2-3 weeks. * No lifting - nothing heavier than baby over the next 2-3 weeks. * Do not engage in vigorous exercise, sexual activity or sports until cleared by your physician. * Do not drive or operate any motorized equipment until cleared by your physician. * You may shower/bathe daily. MEDICATIONS: For discomfort or pain, you may use Acetaminophen (Tylenol), Ibuprofen (Advil), or Naproxen (Aleve) following the package directions. For constipation you may use Colace following the package directions. BREAST CARE: If you are not breast feeding: * Wear a supportive bra 24 hours a day for one to two weeks. * Avoid stimulating your breasts and nipples as much as possible during the first few weeks after delivery. * When taking a shower, have the warm water hit your back, not breasts. * When your breasts feel full, apply ice packs. Usually three to four times a day helps ease the discomfort. * Take a mild pain medication (Tylenol / Motrin) when you are uncomfortable. If breast feeding: * Use breast milk to lubricate nipples. Lansinoh cream may be used for sore nipples. You do not need to remove cream prior to breast feeding. If using a different brand of cream, check the label for directions regarding removal of cream prior to nursing. * Wear a supportive bra. * If having problems with breasts or breast feeding, call a consultants intern or your health care provider. SPECIAL CARE INSTRUCTIONS: When you are discharged from the hospital, it is important for you to follow the instructions listed below: * During the first week at home, you should be able to care for yourself and your baby. In addition, the usual light household activities are encouraged. * Limit your activities to the way you feel. Do not try to clean the house or move furniture. Be sensible. * If you actively engage in sports and have done so up until the time of your delivery, you may resume these activities as soon as you feel able. This may take up to one month or even longer. Use good judgment. * Continue to take your vitamins for at least six weeks after the of your baby. * Your diet need not be limited unless you were on a special diet before your delivery. Breast-feeding mothers need around 2500 calories per day and at least 64-80 ounces of fluid per day (8 to 10 glasses). * You should eat foods from the four major food groups. Crash diets or fad diets are to be avoided. Eating lean meats, fresh fruits and vegetables, low-fat dairy products, high fiber foods and a regular exercise program, will help you get back to your pre- weight without putting your health at risk. * Constipation is sometimes a problem after delivery. Take a mild laxative as needed. If breast feeding, Milk of Magnesia is acceptable to use. You may use a suppository or Fleets enema. * A daily shower or tub bath is suggested. Wash incision daily with warm soapy water and pat dry. It doesn't need to be covered unless drainage is present. * A bloody vaginal discharge will usually continue until around four weeks . A small amount of bleeding may continue for as long as six weeks. Vaginal discharge changes from the bright red bleeding after delivery to pink then brownish and finally yellowish-pink before becoming white and disappearing. * Bleeding may increase with activity. Your first period may come in 4-8 weeks. If you are breast feeding, your period may be delayed even longer. * Mccool (sex) can begin whenever both you and your partner feel comfortable and do not have any form of genital infection. It is recommended that you wait at least six weeks for internal and external healing to occur. If you have questions, please talk to your health care practitioner. A condom should be used to prevent infection and . * Foreplay, gentle intercourse and lubrication is very important the first several times to prevent pain. A water-based lubricant such as K-Y jelly or Astroglide may be used. * If you have RH negative blood and your baby is RH positive, you will receive RHOGAM by injection prior to discharge. The nurse will give you a card to keep with you that has the date and place that you received RHOGAM after delivery. * During your care, you had a Rubella screen done to check for the presence of rubella antibodies in your blood. If your test was negative, you will receive a Rubella vaccine prior to discharge. This vaccine may cause a fever, soreness at the injection site and flu-like symptoms. If these symptoms persist, notify your health care practitioner. is not advised for one month after a Rubella vaccine. * Verbalizes understanding of car seat law as reviewed with patient nursing. * Car Seat hand-out given and reviewed with patient by nursing. * Shaken baby information reviewed with patient by nursing. Call you doctor if: * Heavy bleeding (saturating several pads an hour) or passing clots the size of your fist. * A fever >101 degrees F (38.3 degrees C) on two occasions four hours apart and /or chills. * Unusual pain in the pelvic or vaginal areas. * Call the doctor for any increased redness, drainage or swelling around the incision and any pain unrelieved by prescribed pain medication. * "Baby Blues" lasting longer than two weeks. If you have any questions or concerns, call your health care practitioner at . FOLLOW UP VISIT: * Please call the office at to schedule a 6 week examination. Make a 2 week incision check as well. It is important you keep this appointment. It is important for you to make arrangements for either yearly or twice yearly check-ups thereafter. Current Hospital Diet Patient's current hospital diet: Regular Diet Discharge Diet Recommended Diet: Regular Diet Procedures Procedures Performed: Primary Caesarean Section; Delivery of a live female child at 0759 Pending Studies Studies pending at discharge: no Medical Emergencies . Who to Call and When: Medical Emergencies: If at any time you feel your situation is an emergency, please call [phone] immediately. . Non-Emergent Contact Non-Emergency issues call your: Extractor Operator Helper Call Non-Emergent contact if: you have a fever, temperature is above 101 . . "Provider Documentation" section prepared by Domi Garcia. . VTE Core Measure Inpt VTE Proph given/why not?: Treatment not indicated
[2017-03-28 08:00] VITALS: BP 171/99; PULSE 67; TEMP 36.7; O2SAT 100
[2017-03-28] MEDS: PRENATAL VITAMIN TAB PO SCH (08:54)
[2017-03-28] MEDS: SIMETHICONE 80 MG CHEW PO SCH (08:54)
[2017-03-28] MEDS: DOCUSATE SODIUM 100 MG CAP PO SCH (08:54)
[2017-03-28 11:05] VITALS: BP_DIAS 99; PULSE 67; TEMP 36.7
--- NOTE | 2017-04-09 08:54 | DISCHARGE SUMMARY ---
PRE-DELIVERY DIAGNOSES: 1. Term intrauterine at 37 weeks' gestation, induction indication for chronic hypertension with superimposed preeclampsia. 2. Failure to descend beyond +1 station after 3 hours of pushing. 3. Gestational diabetes mellitus A2 uncontrolled. 4. Advanced maternal age. 5. Smoker. POST-DELIVERY DIAGNOSES: Same. PROCEDURES PERFORMED: Primary low transverse section with delivery of live female . DESCRIPTION OF HOSPITAL STAY: The patient was admitted for induction. She progressed to complete and then failure to descend beyond +1 station and therefore section was performed. She recovered after delivery and was discharged to home on postoperative day 3. ESTIMATED BLOOD LOSS: 600 mL. COMPLICATIONS: None. INFECTION: None. DIET: Regular. FOLLOWUP: Office in 2 weeks for incision check. MEDICATIONS: Percocet and Motrin. CONDITION ON DISCHARGE: Stable and good.
== END 2017-03-28 11:05 | disposition home or self-care (01) | DRG 766 ==
LOC: C.OPB 07:40 → C.LD 07:41 → EDSTATUS 07:42 → C.OBG 03-25 11:42
PROVIDERS: ADMIT Obstetrics & Gynecology; ATTEND Obstetrics & Gynecology
PROC: 10D00Z1 Extraction of Products of Conception, Low, Open Approach (ICD-10-PCS; principal; 2017-03-25 06:58)
DX: O75.81 Maternal exhaustion complicating labor and delivery (principal); O24.424 Gestational diabetes mellitus in childbirth, insulin controlled; O11.4 Pre-existing hypertension with pre-eclampsia, complicating childbirth; O10.02 Pre-existing essential hypertension complicating childbirth; Z3A.37 37 weeks gestation of pregnancy; O09.513 Supervision of elderly primigravida, third trimester; Z37.0 Single live birth; O99.334 Smoking (tobacco) complicating childbirth; F17.200 Nicotine dependence, unspecified, uncomplicated